=== PATIENT | male | born 1960 | race Caucasian/White ===

== ENCOUNTER 2016-07-01 04:46 | Inpatient (IN) | payer MEDICAID, OTHER ==
[~2016-07-01] VITALS: Ht 172.7 cm; Wt 74.4 kg
[~2016-07-01 04:46] MED LIST: AMLO1TAB48 PO; ASPI-1063 PO; B12; COR25 PO; CYAN250010 PO; GLIP-201 PO; GLIP10TA74 PO; GLIP5TAB13 PO; GLYB5TAB7 PO; INSU100V9 SUBCUT; LIP80 PO; LISI10TA5 PO; LOSA50TA3 PO; METF-305 PO; METF-510 PO; MULT PO; PYRI100T2 PO; REGULAR INSULIN; VERA180T7 PO; [UNRECOGNIZED DRUG - REMARK]
[2016-07-01 04:50] VITALS: BP 184/103; PULSE 88; RESP 15; TEMP 97; O2SAT 98
[2016-07-01] MEDS ORDERED: D5NS 1,000 ML IV ONE (05:15)
[2016-07-01] MEDS ORDERED: NEPH PO (05:15)
[2016-07-01] MEDS ORDERED: DEXTROSE 50% JECT 50 ML DISP.SYRIN IVP ONE (06:00)
[2016-07-01 06:07] LABS: BASOPHILS % (AUTO) 0.2 % (0.0-2.0); EOSINOPHILS % (AUTO) 0.3 % (0.0-4.0); HEMATOCRIT 36.5 % (36-54); HEMOGLOBIN 12.3 g/dL (14.0-18.0); LYMPHOCYTES # (AUTO) 0.7 K/uL (1.0-5.5); LYMPHOCYTES % (AUTO) 7.6 % (20.5-51.5); MEAN CORPUSCULAR HEMOGLOBIN 32 pg (27-31); MEAN CORPUSCULAR HGB CONC 34 % (32-36); MEAN CORPUSCULAR VOLUME 96 fL (79.0-98.0); MONOCYTES # (AUTO) 0.5 K/uL (0.0-1.0); MONOCYTES % (AUTO) 5.4 % (1.7-9.3); NEUTROPHILS % (AUTO) 86.5 % (40.0-70.0); PLATELET COUNT (AUTO) 156 K/uL (130-430); RED BLOOD CELL COUNT(AUTO) 3.81 MIL/uL (4.2-6.2); RED CELL DISTRIBUTION WIDTH 13.6 % (9.0-15.0); WHITE BLOOD COUNT (AUTO) 9.2 K/uL (4.8-10.8)
[2016-07-01 06:17] LABS: CALCIUM 9.5 mg/dL (8.4-11.0); CREATININE 1.57 mg/dL (0.55-1.30); POTASSIUM 3.5 mmol/L (3.5-5.1)
[2016-07-01 06:22] LABS: TOTAL BILIRUBIN 0.4 mg/dL (0.0-1.0); TOTAL PROTEIN, SERUM 7.1 g/dL (6.4-8.3)
[2016-07-01] MEDS ORDERED: D10W 250 ML IV SCH (06:30)
[2016-07-01] MEDS ORDERED: COMMUNICATION ORDER XX ONE (06:45)
[2016-07-01 07:01] VITALS: BP 177/113; PULSE 90; RESP 17; TEMP 96.1; O2SAT 99
[2016-07-01 07:09] VITALS: BP 177/113; PULSE 79; RESP 17; TEMP 96.1; O2SAT 100
[2016-07-01] MEDS ORDERED: FLU VACC QS 2016-17(36MOS+)/PF 0.5 ML/SYR SYRINGE I.M. PRN (07:30)
[2016-07-01] MEDS: D10W 1,000 ML IV SCH ×2 (08:32→21:26)
[2016-07-01 10:28] VITALS: BP 159/98; PULSE 88; RESP 18; O2SAT 100
[2016-07-01] MEDS ORDERED: DEXTROSE 50% JECT 50 ML DISP.SYRIN IVP PRN (14:15)
[2016-07-01 14:34] LABS: BILIRUBIN,URINE NEGATIVE (NEGATIVE); CLARITY/URINE CLEAR (CLEAR); COLOR,URINE YELLOW (YELLOW); GLUCOSE,URINE 2+ (NEGATIVE); KETONES,URINE NEGATIVE (NEGATIVE); LEUKOCYTE ESTERASE ,URINE NEGATIVE (NEGATIVE); NITRITE, URINE NEGATIVE (NEGATIVE); PROTEIN URINE 3+ (NEGATIVE); UROBILINOGEN,URINE 0.2 (0.2-1.0)
[2016-07-01 14:35] LABS: BLOOD, URINE TRACE (NEGATIVE)
[2016-07-01] MEDS ORDERED: VERAPAMIL HCL 120 MG TABLET.SA PO ONE (14:45)
[2016-07-01 14:55] LABS: BACTERIA,URINE FEW /HPF (None Seen); MUCUS,URINE None Seen /LPF (None Seen); WBC,URINE 0-3 /HPF (0-3)
[2016-07-01 20:00] VITALS: BP 149/92; PULSE 83; RESP 18; TEMP 99.8; O2SAT 99
[2016-07-01] MEDS ORDERED: VERAPAMIL HCL 180 MG TABLET.SA PO SCH ×2 (21:00)
[2016-07-01] MEDS ORDERED: glipiZIDE XL 5 MG TAB ( GLUCOTROL XL) PO SCH (21:00)
[2016-07-01] MEDS: VERAPAMIL HCL 120 MG TABLET.SA PO SCH (21:29)
[2016-07-02] VITALS (8 sets, daily range): BP systolic 118–157; BP diastolic 72–97; PULSE 71–88; RESP 16–20; TEMP 97.1–98.2; O2SAT 97–99
[2016-07-02 06:45] LABS: BASOPHILS % (AUTO) 0.2 % (0.0-2.0); EOSINOPHILS # (AUTO) 0.1 K/uL (0.0-0.4); HEMATOCRIT 34.6 % (36-54); HEMOGLOBIN 11.6 g/dL (14.0-18.0); LYMPHOCYTES # (AUTO) 2.1 K/uL (1.0-5.5); MEAN CORPUSCULAR HEMOGLOBIN 32 pg (27-31); MEAN CORPUSCULAR HGB CONC 34 % (32-36); MEAN CORPUSCULAR VOLUME 96 fL (79.0-98.0); MONOCYTES # (AUTO) 0.5 K/uL (0.0-1.0); MONOCYTES % (AUTO) 8.3 % (1.7-9.3); NEUTROPHILS # (AUTO) 3.8 K/uL (1.8-7.7); NEUTROPHILS % (AUTO) 57.5 % (40.0-70.0); PLATELET COUNT (AUTO) 159 K/uL (130-430); RED BLOOD CELL COUNT(AUTO) 3.62 MIL/uL (4.2-6.2); RED CELL DISTRIBUTION WIDTH 13.6 % (9.0-15.0); WHITE BLOOD COUNT (AUTO) 6.5 K/uL (4.8-10.8)
[2016-07-02 08:13] LABS: ANION GAP 6 (5-15); CHLORIDE 106 mmol/L (98-107); POTASSIUM 4.4 mmol/L (3.5-5.1); SODIUM SERUM 141 mmol/L (136-145)
[2016-07-02 08:14] LABS: ALANINE AMINOTRANSFERASE 23 U/L (12-78); ALBUMIN 2.4 g/dL (3.4-4.8); ASPARTATE AMINOTRANSFERASE 17 U/L (10-37); CALCIUM 8.9 mg/dL (8.4-11.0); CREATININE 1.69 mg/dL (0.55-1.30); GFR AFRICAN AMERICAN 54 mL/min (>90); GLUCOSE 116 mg/dL (70-99); TOTAL BILIRUBIN 0.4 mg/dL (0.0-1.0); TOTAL PROTEIN, SERUM 6.2 g/dL (6.4-8.3); UREA NITROGEN, BLOOD 23 mg/dL (8-21)
[2016-07-02 08:15] LABS: CHOLESTEROL 165 mg/dL (<200); HDL CHOLESTEROL 47 mg/dL (>45); LDL CHOLESTEROL 91 mg/dL (<100); THYROID STIMULATING HORMONE 0.96 uIu/mL (0.34-4.82); TRIGLYCERIDES 86 mg/dL (30-150)
[2016-07-02] MEDS ORDERED: CYANOCOBALAMIN 1000 mCg TABLET PO SCH (09:00)
[2016-07-02] MEDS: ASPIRIN 81 MG TABLET(ECOTRIN) PO SCH (09:45)
[2016-07-02] MEDS: MULTIVITAMINS TAB 1 TABLET PO SCH (09:46)
[2016-07-02] MEDS: NEPHROVITE, (FOLIC ACID/VITAMIN B COMP W-C 1 TAB) PO SCH (09:46)
[2016-07-02] MEDS: ATORVASTATIN 20 MG TABLET PO SCH (09:51)
[2016-07-02] MEDS: VERAPAMIL HCL 120 MG TABLET.SA PO SCH ×2 (09:57→21:01)
[2016-07-02] MEDS: INSULIN REGULAR, HUMAN 100 UNITS/ML, 10 ML VIAL (novoLIN R) SUBCUT PRN ×3 (09:59→21:24)
[2016-07-02] MEDS ORDERED: DEXTROSE 50% JECT 50 ML DISP.SYRIN IVP PRN (18:15)
[2016-07-02] MEDS ORDERED: ACETAMINOPHEN 325 MG TABLET PO PRN (18:45)
[2016-07-03] VITALS (7 sets, daily range): BP systolic 128–157; BP diastolic 84–93; PULSE 67–76; RESP 16–20; TEMP 97.2–97.8; O2SAT 96–99; Ht 172.7 cm; Wt 74.4 kg
[2016-07-03 08:13] LABS: CALCIUM 8.9 mg/dL (8.4-11.0); CREATININE 1.71 mg/dL (0.55-1.30); POTASSIUM 5.1 mmol/L (3.5-5.1)
[2016-07-03] MEDS: MULTIVITAMINS TAB 1 TABLET PO SCH (08:31)
[2016-07-03] MEDS: ASPIRIN 81 MG TABLET(ECOTRIN) PO SCH (08:32)
[2016-07-03] MEDS: ATORVASTATIN 20 MG TABLET PO SCH (08:32)
[2016-07-03] MEDS: NEPHROVITE, (FOLIC ACID/VITAMIN B COMP W-C 1 TAB) PO SCH (08:32)
[2016-07-03] MEDS: VERAPAMIL HCL 120 MG TABLET.SA PO SCH (08:32)
[2016-07-03] MEDS: INSULIN REGULAR, HUMAN 100 UNITS/ML, 10 ML VIAL (novoLIN R) SUBCUT PRN (11:07)
[2016-07-03] MEDS ORDERED: CARVEDILOL 6.25 MG TABLET (COREG) PO ONE (11:30)
[2016-07-03] MEDS ORDERED: CARVEDILOL 6.25 MG TABLET (COREG) PO SCH (21:00)
[2016-07-04] MEDS ORDERED: LOSARTAN POTASSIUM 50 MG TABLET (COZAAR) PO SCH (09:00)
== END 2016-07-03 14:25 | disposition home or self-care (01) | DRG 637 ==
LOC: SED 04:46 → STU 06:36 → EEVIPCON 06:36 → STU 06:50
PROVIDERS: ADMIT Internal Medicine; ATTEND Internal Medicine
DX: E11.649 Type 2 diabetes mellitus with hypoglycemia without coma (principal); G93.41 Metabolic encephalopathy; T38.3X5A Adverse effect of insulin and oral hypoglycemic [antidiabetic] drugs, initial encounter; Y92.89 Other specified places as the place of occurrence of the external cause; R07.89 Other chest pain; E11.21 Type 2 diabetes mellitus with diabetic nephropathy; E11.22 Type 2 diabetes mellitus with diabetic chronic kidney disease; D63.8 Anemia in other chronic diseases classified elsewhere; E78.5 Hyperlipidemia, unspecified; I25.10 Atherosclerotic heart disease of native coronary artery without angina pectoris; I25.5 Ischemic cardiomyopathy; N18.9 Chronic kidney disease, unspecified; I12.9 Hypertensive chronic kidney disease with stage 1 through stage 4 chronic kidney disease, or unspecified chronic kidney disease; I51.7 Cardiomegaly; Z59.9 Problem related to housing and economic circumstances, unspecified; Z91.19 Patient's noncompliance with other medical treatment and regimen; Z88.8 Allergy status to other drugs, medicaments and biological substances; Z83.3 Family history of diabetes mellitus; Z82.49 Family history of ischemic heart disease and other diseases of the circulatory system; I25.2 Old myocardial infarction; Z79.899 Other long term (current) drug therapy
CPT/HCPCS: 36415; 71020-TC; 80048; 80053; 80061; 81000-TC; 82962; 83036; 83880; 84443-TC; 84484; 85025; 93005; 93306; 96374; 99285; J1815; J7042; Q2037

== ENCOUNTER 2016-07-24 10:14 | Inpatient (IN) | payer SELFPAY ==
[~2016-07-24] VITALS: Ht 172.7 cm; Wt 72.6 kg
[~2016-07-24 10:14] MED LIST changes: +NEPH PO
[2016-07-24 10:15] VITALS: BP 154/91; PULSE 85; RESP 20; TEMP 99.6; O2SAT 100
--- NOTE | 2016-07-24 10:15 | NUR ---
Pt placed to ER bed 02 and triaged at bedside. Pt c/o SOB with productive cough x 4 days. Pt also c/o Right sided C/P from coughing. Family member at bedside. Addendum: 07/24/16 at 1228 by SDEDAJ Pt also c/o Left C/P.
--- NOTE | 2016-07-24 10:20 | NUR ---
Dr. Alves at bedside to assess pt.
[2016-07-24] MEDS ORDERED: IPRATROPIUM/ALBUTEROL SULFATE 3 ML AMPUL.NEB INH ONE (10:30)
--- NOTE | 2016-07-24 10:35 | NUR ---
# 20 gauge angiocath placed to RAC. Use of asceptic technique. Opsite placed over site. Blood return noted. Blood for lab drawn from site. Flushed with 10 cc of normal saline. No evidence of infiltration noted. Patient tolerated well.
[2016-07-24 10:48] LABS: BASOPHILS # (AUTO) 0.1 K/uL (0.0-0.2); BASOPHILS % (AUTO) 1.6 % (0.0-2.0); EOSINOPHILS % (AUTO) 0.5 % (0.0-4.0); HEMATOCRIT 35.7 % (36-54); LYMPHOCYTES # (AUTO) 1.1 K/uL (1.0-5.5); LYMPHOCYTES % (AUTO) 11.8 % (20.5-51.5); MEAN CORPUSCULAR HEMOGLOBIN 32 pg (27-31); MEAN CORPUSCULAR HGB CONC 34 % (32-36); MEAN CORPUSCULAR VOLUME 94 fL (79.0-98.0); MONOCYTES # (AUTO) 0.8 K/uL (0.0-1.0); MONOCYTES % (AUTO) 8.9 % (1.7-9.3); NEUTROPHILS # (AUTO) 7.3 K/uL (1.8-7.7); NEUTROPHILS % (AUTO) 77.2 % (40.0-70.0); PLATELET COUNT (AUTO) 207 K/uL (130-430); RED CELL DISTRIBUTION WIDTH 13.9 % (9.0-15.0); WHITE BLOOD COUNT (AUTO) 9.3 K/uL (4.8-10.8)
[2016-07-24] MEDS ORDERED: ASPIRIN 325 MG TABLET (ECOTRIN) PO ONE (11:00)
--- NOTE | 2016-07-24 11:00 | NUR ---
Neb tx IP per RT.
[2016-07-24] MEDS ORDERED: ASPIRIN 325 MG TABLET ONE (11:05)
[2016-07-24 11:16] LABS: CALCIUM 8.1 mg/dL (8.4-11.0); CREATININE 1.94 mg/dL (0.55-1.30); POTASSIUM 4.1 mmol/L (3.5-5.1)
[2016-07-24 11:24] LABS: ALBUMIN 2.3 g/dL (3.4-4.8); TOTAL BILIRUBIN 0.7 mg/dL (0.0-1.0)
[2016-07-24] MEDS ORDERED: FUROSEMIDE 40 MG/4 ML VIAL IVP ONE (11:45)
[2016-07-24] MEDS ORDERED: NS 500 ML IV ONE (12:00)
[2016-07-24] MEDS ORDERED: HEPARIN 25,000 UNITS/D5W 250ML 250 ML IV ONE ×2 (12:00→12:15)
--- NOTE | 2016-07-24 12:00 | NUR ---
Pt resting quietly with eyes closed, even and non-labored respirations, VSS. at bedside. No needs verbalized at this time.
[2016-07-24] MEDS ORDERED: VITD2000 PO (12:02)
[2016-07-24] MEDS ORDERED: FISH1CAP16 PO (12:02)
[2016-07-24] MEDS ORDERED: LOSA1TAB36 PO (12:02)
--- NOTE | 2016-07-24 12:03 | NUR ---
Medication reconciliation completed with information provided by patient . Any prior medication reconciliation on file was reviewed and corrected.
--- NOTE | 2016-07-24 12:22 | NUR ---
Nuc med called stated pt will be scanned tonight will inform [facility] nurse upon admission
[2016-07-24 12:27] LABS: PROTHROMBIN TIME 10.8 SECS (9.5-12.5)
[2016-07-24] MEDS ORDERED: COMMUNICATION ORDER XX SCH (12:30)
--- NOTE | 2016-07-24 12:30 | NUR ---
Pt unable to provide urine specimen at this time.
[2016-07-24] MEDS ORDERED: HEPARIN SODIUM,PORCINE 5000 UNITS/ML VIAL ONE (12:59)
[2016-07-24] MEDS ORDERED: MORPHINE SULFATE 10 MG/ML VIAL IVP PRN (13:00)
[2016-07-24] MEDS ORDERED: HEPARIN SODIUM,PORCINE 5000 UNITS/ML VIAL IVP ONE (13:00)
--- NOTE | 2016-07-24 13:07 | NUR ---
Dr. Alves notified about pt.'s pain 12/25 and temp 101.6. Pt to be medicated.
[2016-07-24] MEDS ORDERED: INSULIN REGULAR, HUMAN 100 UNITS/ML, 10 ML VIAL (novoLIN R) SUBCUT PRN (13:15)
[2016-07-24] MEDS ORDERED: MORPHINE SULFATE 10 MG/ML VIAL IVP ONE (13:15)
[2016-07-24] MEDS ORDERED: ACETAMINOPHEN 500 MG TABLET PO ONE (13:15)
--- NOTE | 2016-07-24 13:20 | NUR ---
Patient will be admitted to care of Dr. Zhao. Admitted to Tele unit. Will go to room 135. Summary report printed. Bedside report given to receiving RN.
--- NOTE | 2016-07-24 13:20 | NUR ---
ADMIT NOTE Received pt from ER to the floor with a diagnosis of CHF . Admission process initiated. patient oriented to pain management, safety and call light-teach back done.
[2016-07-24 13:25] VITALS: BP 129/65; PULSE 87; RESP 20; TEMP 102.2; O2SAT 95
[2016-07-24 13:27] VITALS: BP 129/65; PULSE 86; RESP 20; TEMP 102.2; O2SAT 96
[2016-07-24] MEDS ORDERED: HEPARIN 25,000 UNITS in 250 ML PREMIX IV PRN (14:00)
[2016-07-24] MEDS ORDERED: HEPARIN SODIUM,PORCINE 2000 UNITS/0.4 ML BOLUS IVP PRN (14:00)
[2016-07-24] MEDS ORDERED: HEPARIN SODIUM,PORCINE 3000 UNITS/0.6 ML BOLUS IVP PRN (14:00)
[2016-07-24] MEDS ORDERED: GLUCOSE 15 GM GEL (in 37.5 GM TUBE) PO PRN ×2 (14:30)
[2016-07-24] MEDS ORDERED: DEXTROSE 50%-WATER 50 ML DISP.SYRIN IVP PRN ×2 (14:30)
--- NOTE | 2016-07-24 15:00 | NUR ---
Patient awake,alert and oriented x3 , at bedside . Patient denies shortness of breath ,on Heparin drip at 1200 units/hour.Patient informed that he is going for VQ scan today.Was seen by Dr. Zhao. Patient instructed about the need to get a sputum specimen for sputum culture.
[2016-07-24] MEDS ORDERED: DEXTROSE 50% JECT 50 ML DISP.SYRIN IVP PRN (15:30)
[2016-07-24] MEDS ORDERED: ACETAMINOPHEN 325 MG TABLET PO PRN (15:30)
--- NOTE | 2016-07-24 15:42 | NUR ---
Cardio Consult: for Dr. Woodson (Dr. Carrera is application support intern), regarding CP, ordered by Dr. Lopez, spoke with Zaida.
--- NOTE | 2016-07-24 16:20 | NUR ---
INFLUENZA A AND B SENT TO LAB.
[2016-07-24] MEDS: NACL 0.9% 1,000 ML IV SCH (16:32)
--- NOTE | 2016-07-24 16:47 | NUR ---
PT WENT FOR FANTASMA SANTIAGO AT THIS TIME.
--- NOTE | 2016-07-24 17:30 | NUR ---
Patient went to Nuclear med for VQ scan with RN.Tolerated procedure well.
--- NOTE | 2016-07-24 17:55 | NUR ---
RETURNED FROM VQ SCAN.
[2016-07-24] MEDS: PIPERACILLIN/TAZO 2.25G/DEX-IS 50 ML IV SCH ×2 (18:06→23:37)
[2016-07-24] MEDS: INSULIN REGULAR, HUMAN 100 UNITS/ML, 10 ML VIAL (novoLIN R) SUBCUT PRN ×2 (18:08→22:06)
[2016-07-24 18:21] VITALS: TEMP 97.9
--- NOTE | 2016-07-24 18:48 | NUR ---
notes in bed, resting. family at bedside. denies any chest pain at this time. heparin running at 1200 unit/hr. ivf infusing well. afebrile at this time. still need ua, c&S and sputum culture. will endorse. call light in reach. no distress noted. will monitor.
[2016-07-24 19:45] VITALS: BP 138/82; PULSE 63; RESP 18; TEMP 98; O2SAT 95
--- NOTE | 2016-07-24 19:45 | NUR ---
INITIAL NOTES: PT AWAKE , ALERT AND ORIENTED ; DENIED ANY PAIN , SOB OR CHEST PAIN AT THIS TIME; VITALS ARE STABLE ; NO S/S OF ANY DISTRESS NOTED;HEPARIN CONTINUOUS DRIP IS INFUSING AT THE RATE OF 1200 U TO THE R AC 20 G , ; ASSESSMENT DONE ; IV FLUID INFUSING TO THE R HAND 22 G, NO S/S OF ANY INFILTRATION NOTED . PT HAS 2 SPECIMEN BOTTLE AT BEDSIDE , EXPLAINED PT HOW TO COLLECT URINE AND SPUTUM . WILL FOLLOW UP ;CALL [employer] IN REACH; INSTRUCTED PT TO CALL FOR ANY HELP. WILL CONTINUE TO MONITOR.FAMILY AT BEDSIDE .
--- NOTE | 2016-07-24 20:14 | NUR ---
VQ SCAN RESULT : PER RADIOLOGY DEPARTMENT (TALKED WITH TECH ), NO EVIDENCE OF PE , REQUESTED TECH TO FAX THE RESULT ONCE ITS READY .
--- NOTE | 2016-07-24 20:15 | NUR ---
PAGED: WILL PAGE DR LOOMIS TO NOTIFY RESULT , AND INFORM HIM THAT THE HEPARIN IS DISCONTINUED BY ER AND DOES THE PT NEEDS IT, AND HEPARIN IS STILL INFUSING , ALSO WILL INFORM HIS PTT LEVEL
--- NOTE | 2016-07-24 20:17 | NUR ---
PAGED PAGED DANILO HAUSER AT [phone] SPOKE WITH SEBLE.
[2016-07-24] MEDS ORDERED: COMMUNICATION ORDER XX ONE (20:30)
--- NOTE | 2016-07-24 20:30 | NUR ---
DCD HEPARIN: HEPARIN DISCONTINUED PER DR LOOMIS'S ORDER ., WAS NOTIFIED ABOUT THE PTT LEVEL , VQ SCAN RESULT , INFLUENZA A AND B RESULTS .
[2016-07-24] MEDS: LACTOBACILLUS RHAMNOSUS GG 1 CAP CAPSULE PO SCH (22:03)
[2016-07-24] MEDS: guaiFENesin ER 600 MG TAB PO SCH (22:03)
[2016-07-24] MEDS: glipiZIDE XL 5 MG TAB ( GLUCOTROL XL) PO SCH (22:03)
--- NOTE | 2016-07-24 22:05 | NUR ---
MEDICATION: DUE MEDS GIVEN , PT IS COMFORTABLE ; PT VOIDED EARLIER BUT SOME ONE EMPTIED IT , REQUESTED PT TO CALL NEXT TIME ; WILL CONTINUE TO MONITOR.
[2016-07-24 23:39] VITALS: BP 134/86; PULSE 66; RESP 16; TEMP 97; O2SAT 93
[2016-07-25] VITALS (7 sets, daily range): BP systolic 106–161; BP diastolic 57–88; PULSE 74–87; RESP 16–22; TEMP 97.6–99.4; O2SAT 95–98; Ht 172.7 cm; Wt 72.6 kg
--- NOTE | 2016-07-25 00:10 | NUR ---
RN NOTES: PT IS COMFORTABLE ; SLEEPING , NOT IN ANY DISTRESS; WILL CONTINUE TO MONITOR.DUE ANTIBIOTIC GIVEN EARLIER , NO S/S OF ANY REACTION NOTED , BEFORE GIVING ANTIBIOTIC ENCOURAGED PT TO COLLECT URINE AND SPUTUM SPECIMEN BUT PT COULDNT .
--- NOTE | 2016-07-25 02:00 | NUR ---
RN ROUNDS: PT IS SLEEPING, NOT IN ANY ACUTE DISTRESS; WILL CONTINUE TO MONITOR. Addendum: 07/25/16 at 0405 by Gissel Austin RN URINE AND SPUTUM COLLECTED AND SENT TO LAB
[2016-07-25 03:23] LABS: BILIRUBIN,URINE NEGATIVE (NEGATIVE); BLOOD, URINE 1+ (NEGATIVE); CLARITY/URINE CLEAR (CLEAR); COLOR,URINE YELLOW (YELLOW); GLUCOSE,URINE 3+ (NEGATIVE); KETONES,URINE NEGATIVE (NEGATIVE); LEUKOCYTE ESTERASE ,URINE NEGATIVE (NEGATIVE); NITRITE, URINE NEGATIVE (NEGATIVE); PROTEIN URINE 3+ (NEGATIVE); UROBILINOGEN,URINE 0.2 (0.2-1.0)
[2016-07-25] MEDS: NACL 0.9% 1,000 ML IV SCH (03:59)
[2016-07-25 04:02] LABS: BACTERIA,URINE FEW /HPF (None Seen); MUCUS,URINE None Seen /LPF (None Seen); RBC,URINE 0-3 /HPF (0-3); WBC,URINE 0-3 /HPF (0-3)
--- NOTE | 2016-07-25 04:05 | NUR ---
RN ROUNDS: PT IS SLEEPING , NOT IN ANY DISTRESS; WILL CONTINUE TO MONITOR.
[2016-07-25] MEDS: PIPERACILLIN/TAZO 2.25G/DEX-IS 50 ML IV SCH ×4 (06:29→23:42)
[2016-07-25] MEDS: INSULIN REGULAR, HUMAN 100 UNITS/ML, 10 ML VIAL (novoLIN R) SUBCUT PRN ×3 (06:31→21:11)
--- NOTE | 2016-07-25 06:53 | NUR ---
CLOSING NOTES: BS 213 , 2 UNITS OF REGULAR INSULIN GIVEN PER ORDER ; DUE ZOSYN STARTED ;PT IS COMFORTABLE ; NOT IN ANY ACUTE DISTRESS; VITALS ARE STABLE ; WILL CONTINUE TO MONITOR AND WILL ENDORSE TO NEXT SHIFT NURSE .
[2016-07-25 07:26] LABS: BASOPHILS % (AUTO) 0.2 % (0.0-2.0); EOSINOPHILS # (AUTO) 0.1 K/uL (0.0-0.4); EOSINOPHILS % (AUTO) 0.7 % (0.0-4.0); HEMATOCRIT 29.9 % (36-54); HEMOGLOBIN 9.9 g/dL (14.0-18.0); LYMPHOCYTES # (AUTO) 1.3 K/uL (1.0-5.5); LYMPHOCYTES % (AUTO) 14.7 % (20.5-51.5); MEAN CORPUSCULAR HEMOGLOBIN 32 pg (27-31); MEAN CORPUSCULAR HGB CONC 33 % (32-36); MEAN CORPUSCULAR VOLUME 95 fL (79.0-98.0); MONOCYTES # (AUTO) 0.8 K/uL (0.0-1.0); MONOCYTES % (AUTO) 8.9 % (1.7-9.3); NEUTROPHILS # (AUTO) 6.4 K/uL (1.8-7.7); NEUTROPHILS % (AUTO) 75.5 % (40.0-70.0); PLATELET COUNT (AUTO) 155 K/uL (130-430); RED BLOOD CELL COUNT(AUTO) 3.15 MIL/uL (4.2-6.2); RED CELL DISTRIBUTION WIDTH 13.2 % (9.0-15.0); WHITE BLOOD COUNT (AUTO) 8.6 K/uL (4.8-10.8)
[2016-07-25 07:51] LABS: ANION GAP 6 (5-15); CALCIUM 7.8 mg/dL (8.4-11.0); CHLORIDE 100 mmol/L (98-107); CREATININE 1.69 mg/dL (0.55-1.30); GLUCOSE 203 mg/dL (70-99); SODIUM SERUM 133 mmol/L (136-145); UREA NITROGEN, BLOOD 16 mg/dL (8-21)
[2016-07-25 08:00] LABS: ALANINE AMINOTRANSFERASE 18 U/L (12-78); ALBUMIN 1.9 g/dL (3.4-4.8); ASPARTATE AMINOTRANSFERASE 20 U/L (10-37); TOTAL BILIRUBIN 0.7 mg/dL (0.0-1.0); TOTAL PROTEIN, SERUM 6.1 g/dL (6.4-8.3)
--- NOTE | 2016-07-25 08:00 | NUR ---
PT IN BED AWAKE, ALERT AND ORIENTED. ON ROOM AIR. DENIES ANY SHORTNESS OF BREATH, PT STILL HAS COUGH. AMBULATE TO THE BATHROOM WITH MIN ASSIST. IVF INFUSING WELL. SAFETY PRECAUTION OBSERVED. CALL LIGHT IN REACH. ENC. TO CALL FOR HELP NEEDED. PT VERBALIZE UNDERSTANDING.
[2016-07-25 08:02] LABS: GFR AFRICAN AMERICAN 54 mL/min (>90)
[2016-07-25 08:09] LABS: CHOLESTEROL 103 mg/dL (<200); HDL CHOLESTEROL 29 mg/dL (>45); LDL CHOLESTEROL 51 mg/dL (<100); TRIGLYCERIDES 109 mg/dL (30-150)
[2016-07-25] MEDS: CHOLECALCIFEROL (VITAMIN D3) 2,000 UNIT TABLET PO SCH (09:13)
[2016-07-25] MEDS: guaiFENesin ER 600 MG TAB PO SCH ×2 (09:14→21:04)
[2016-07-25] MEDS: NEPHROVITE, (FOLIC ACID/VITAMIN B COMP W-C 1 TAB) PO SCH (09:14)
[2016-07-25] MEDS: ATORVASTATIN 20 MG TABLET PO SCH (09:15)
[2016-07-25] MEDS: LACTOBACILLUS RHAMNOSUS GG 1 CAP CAPSULE PO SCH ×2 (09:15→21:04)
[2016-07-25] MEDS: glipiZIDE XL 5 MG TAB ( GLUCOTROL XL) PO SCH ×2 (09:18→21:04)
[2016-07-25] MEDS: VERAPAMIL HCL 180 MG TABLET.SA PO SCH (09:18)
[2016-07-25] MEDS: ASPIRIN 81 MG TABLET(ECOTRIN) PO SCH (09:19)
[2016-07-25] MEDS: MULTIVITAMINS TAB 1 TABLET PO SCH (09:19)
--- NOTE | 2016-07-25 10:00 | NUR ---
WALKING IN THE HALLWAY WITH HIS .
--- NOTE | 2016-07-25 12:00 | NUR ---
EATING LUNCH. FAMILY AT BEDSIDE.
--- NOTE | 2016-07-25 14:30 | NUR ---
Dr. Zhao is here to see the patient,made aware that blood culture 1 out of 2 is positive for Gram positive. Ordered Vancomycin to be started.
[2016-07-25] MEDS ORDERED: IPRATROPIUM/ALBUTEROL SULFATE 3 ML AMPUL.NEB INH ONE (15:15)
[2016-07-25] MEDS ORDERED: AZITHROMYCIN 250 MG TABLET PO ONE (15:15)
[2016-07-25] MEDS ORDERED: VANCOMYCIN HCL 1 GM/NS PREMIX 250 ML IV ONE (16:00)
--- NOTE | 2016-07-25 16:00 | NUR ---
RESTING IN BED, NO ACUTE DISTRESS NOTED. DENIES ANY PAIN OR DISCOMFORT.
--- NOTE | 2016-07-25 18:21 | NUR ---
IN BED AWAKE, DENIES ANY PAIN OR DISCOMFORT. NO DISTRESS NOTED. IV ABX INFUSING AT THIS TIME. ALL NEEDS MEET. WILL ENDORSE
--- NOTE | 2016-07-25 19:30 | NUR ---
notes received the pt from the day nurse,pt a/a/ox4 monitor in place and shows a fib at 82.saline lock intact to rt hand.pt with no c/o sob call light within reach safety measures are in progress.continue to monitor.
[2016-07-25] MEDS: IPRATROPIUM/ALBUTEROL SULFATE 3 ML AMPUL.NEB INH SCH (21:46)
--- NOTE | 2016-07-25 23:35 | NUR ---
NOTES PT SLEEPING,NO RESPIRATORY DIFFICULTY NOTED. CONTINUE TO MONITOR
--- NOTE | 2016-07-26 01:20 | NUR ---
NOTES PT REMAINS ASLEEP ,NO DISTRESS NOTED.CONTINUE TO MONITOR.
[2016-07-26 03:50] VITALS: BP 152/87; PULSE 88; RESP 18; TEMP 98.2; O2SAT 97
--- NOTE | 2016-07-26 03:51 | NUR ---
NOTES PT REMAINS ASLEEP,NO RESPIRATORY DIFFICULTY NOTED.CONTINUE TO MONITOR.
--- NOTE | 2016-07-26 04:22 | NUR ---
NOTES PT SLEEPING,NO DISTRESS NOTED CONTINUE TO MONITOR.
--- NOTE | 2016-07-26 05:34 | NUR ---
NOTES PT REMAINS ASLEEP,CALL LIGHT WITHIN REACH.CONTINUE TO MONITOR.
[2016-07-26] MEDS: PIPERACILLIN/TAZO 2.25G/DEX-IS 50 ML IV SCH ×3 (05:44→17:41)
--- NOTE | 2016-07-26 06:32 | NUR ---
CLOSING NOTES AWAKEN FOR ACCUCHECK THAT WAS
--- NOTE | 2016-07-26 06:33 | NUR ---
CLOSING NOTES AWAKEN FOR ACCUCHECK THAT WAS 169,NO INSULIN NEEDED PER S/S.RETURNS TO SLEEP WITH NO COMPLAINTS.
[2016-07-26 06:56] LABS: BASOPHILS % (AUTO) 0.1 % (0.0-2.0); EOSINOPHILS % (AUTO) 0.3 % (0.0-4.0); HEMATOCRIT 29.6 % (36-54); HEMOGLOBIN 9.8 g/dL (14.0-18.0); LYMPHOCYTES # (AUTO) 1.2 K/uL (1.0-5.5); LYMPHOCYTES % (AUTO) 14.9 % (20.5-51.5); MEAN CORPUSCULAR HEMOGLOBIN 31 pg (27-31); MEAN CORPUSCULAR HGB CONC 33 % (32-36); MEAN CORPUSCULAR VOLUME 94 fL (79.0-98.0); MONOCYTES # (AUTO) 0.9 K/uL (0.0-1.0); MONOCYTES % (AUTO) 11.8 % (1.7-9.3); NEUTROPHILS # (AUTO) 5.7 K/uL (1.8-7.7); NEUTROPHILS % (AUTO) 72.9 % (40.0-70.0); PLATELET COUNT (AUTO) 182 K/uL (130-430); RED BLOOD CELL COUNT(AUTO) 3.16 MIL/uL (4.2-6.2); RED CELL DISTRIBUTION WIDTH 13.2 % (9.0-15.0); WHITE BLOOD COUNT (AUTO) 7.8 K/uL (4.8-10.8)
[2016-07-26] MEDS: IPRATROPIUM/ALBUTEROL SULFATE 3 ML AMPUL.NEB INH SCH ×3 (07:23→19:51)
[2016-07-26 07:27] LABS: CALCIUM 8.4 mg/dL (8.4-11.0); CREATININE 1.61 mg/dL (0.55-1.30); POTASSIUM 4.1 mmol/L (3.5-5.1)
--- NOTE | 2016-07-26 07:34 | NUR ---
PATIENT A/OX4, SR ON MONITOR. V/S STABLE. IV ON RIGHT FA, #20, SL. AMBULATORY. INSTRUCTED PATIENT TO USE CALL LIGHT, WHICH IS IN PLACE, FOR NEEDS, BED AT LOWEST POSITION, WILL CONTINUE TO MONITOR.
[2016-07-26 08:00] VITALS: BP 172/102; PULSE 91; RESP 18; TEMP 98; O2SAT 100
[2016-07-26] MEDS: MULTIVITAMINS TAB 1 TABLET PO SCH (08:00)
[2016-07-26] MEDS: glipiZIDE XL 5 MG TAB ( GLUCOTROL XL) PO SCH ×2 (08:00→21:39)
[2016-07-26] MEDS: VERAPAMIL HCL 180 MG TABLET.SA PO SCH (08:00)
[2016-07-26] MEDS: AZITHROMYCIN 250 MG TABLET PO SCH (08:00)
[2016-07-26] MEDS: CHOLECALCIFEROL (VITAMIN D3) 2,000 UNIT TABLET PO SCH (08:01)
[2016-07-26] MEDS: ASPIRIN 81 MG TABLET(ECOTRIN) PO SCH (08:01)
[2016-07-26] MEDS: NEPHROVITE, (FOLIC ACID/VITAMIN B COMP W-C 1 TAB) PO SCH (08:01)
[2016-07-26] MEDS: ATORVASTATIN 20 MG TABLET PO SCH (08:01)
[2016-07-26] MEDS: guaiFENesin ER 600 MG TAB PO SCH ×2 (08:01→21:39)
[2016-07-26] MEDS: LACTOBACILLUS RHAMNOSUS GG 1 CAP CAPSULE PO SCH ×2 (08:01→21:40)
--- NOTE | 2016-07-26 10:00 | NUR ---
PATIENT IS RESTING IN BED, NO SIGNS OF DISTRESS NOTED. SR ON MONITOR. WILL CONTINUE TO MONITOR.
[2016-07-26 12:00] VITALS: BP 150/91; PULSE 94; RESP 21; TEMP 98.3; O2SAT 97
--- NOTE | 2016-07-26 12:10 | NUR ---
PATIENT BLOOD SUGAR IS 233. 2 UNITS OF RI WILL BE GIVEN.
[2016-07-26] MEDS: INSULIN REGULAR, HUMAN 100 UNITS/ML, 10 ML VIAL (novoLIN R) SUBCUT PRN ×3 (12:29→21:44)
--- NOTE | 2016-07-26 14:28 | NUR ---
PATIENT IS RESTING IN BED WITH FAMILY AT BEDSIDE.
[2016-07-26 16:00] VITALS: BP 149/77; PULSE 71; RESP 20; TEMP 97; O2SAT 98
[2016-07-26 20:12] VITALS: BP 137/71; PULSE 74; RESP 18; TEMP 98.1; O2SAT 96
--- NOTE | 2016-07-26 20:41 | NUR ---
Patient awake alert verbally indicative , assist for position change using urinal as needed call pierre with patient / .
[2016-07-26] MEDS ORDERED: ZOLPIDEM TARTRATE 5 MG TABLET PO PRN (21:45)
--- NOTE | 2016-07-26 22:45 | NUR ---
New ordered obtained from MD DR Zhao / .
--- NOTE | 2016-07-26 23:08 | NUR ---
BSG @ 288 MG DL 4 UNITS of Regular insulin sub q. administer per sliding scale / .
--- NOTE | 2016-07-26 23:08 | NUR ---
AMBIEN 5 MG PRN QHS for sleep aide , new order from / .
[2016-07-27] MEDS: PIPERACILLIN/TAZO 2.25G/DEX-IS 50 ML IV SCH ×4 (00:45→17:04)
[2016-07-27] MEDS: IPRATROPIUM/ALBUTEROL SULFATE 3 ML AMPUL.NEB INH SCH ×3 (01:00→14:01)
[2016-07-27 01:10] VITALS: BP 131/68; PULSE 73; RESP 20; TEMP 97.8; O2SAT 97
--- NOTE | 2016-07-27 01:23 | NUR ---
ZOSYN 2.25GM IVPB administer as ordered no allergic reaction noted skin dry warm / .
[2016-07-27 04:00] VITALS: BP 132/68; PULSE 74; RESP 16; TEMP 97.8; O2SAT 98
--- NOTE | 2016-07-27 05:57 | NUR ---
assist patient out of bed for CXR went to DEPARTMENT X RAY / .
[2016-07-27] MEDS: INSULIN REGULAR, HUMAN 100 UNITS/ML, 10 ML VIAL (novoLIN R) SUBCUT PRN ×2 (06:34→12:20)
[2016-07-27 08:00] VITALS: BP 181/101; PULSE 86; RESP 16; TEMP 98; O2SAT 98
[2016-07-27] MEDS: ATORVASTATIN 20 MG TABLET PO SCH (08:00)
[2016-07-27] MEDS: glipiZIDE XL 5 MG TAB ( GLUCOTROL XL) PO SCH (08:01)
[2016-07-27] MEDS: VERAPAMIL HCL 180 MG TABLET.SA PO SCH (08:01)
[2016-07-27] MEDS: NEPHROVITE, (FOLIC ACID/VITAMIN B COMP W-C 1 TAB) PO SCH (08:01)
[2016-07-27] MEDS: MULTIVITAMINS TAB 1 TABLET PO SCH (08:01)
[2016-07-27] MEDS: CHOLECALCIFEROL (VITAMIN D3) 2,000 UNIT TABLET PO SCH (08:01)
[2016-07-27] MEDS: AZITHROMYCIN 250 MG TABLET PO SCH (08:02)
[2016-07-27] MEDS: ASPIRIN 81 MG TABLET(ECOTRIN) PO SCH (08:02)
[2016-07-27] MEDS: LACTOBACILLUS RHAMNOSUS GG 1 CAP CAPSULE PO SCH (08:02)
[2016-07-27] MEDS: guaiFENesin ER 600 MG TAB PO SCH (08:03)
--- NOTE | 2016-07-27 10:00 | NUR ---
PATIENT IS SEEN WALKING WITH IV POLE WITHOUT DISCOMFORT.
--- NOTE | 2016-07-27 12:00 | NUR ---
PATIENT BLOOD SUGAR 259. 4 UNITS OF RI IS GIVEN SUBCUT.
--- NOTE | 2016-07-27 14:00 | NUR ---
PATIENT IS RESTING, NO SIGNS OF DISTRESS NOTED. SR ON MONITOR, FAMILY AT BEDSIDE.
[2016-07-27] MEDS ORDERED: cloNIDine HCL 0.1 MG TABLET PO ONE (15:15)
[2016-07-27] MEDS ORDERED: EPOETIN ALFA 4,000 UNITS/ML VIAL SUBCUT ONE (15:30)
--- NOTE | 2016-07-27 16:15 | NUR ---
PATIENT IS RESTING, NO SIGNS OF DISTRESS NOTED.
[2016-07-27 16:31] VITALS: BP 155/81; PULSE 78; RESP 17; TEMP 97.4; O2SAT 98
--- NOTE | 2016-07-27 18:00 | NUR ---
D/C Patient Patient given medication reconciliation form and D/C instructions. Exit Care provided. Patient verbalized understanding. MD discussed with patient the results and treatment provided. Ambulatory with steady gait for discharge to home. Patient in stable condition, ID band removed. IV catheter removed, intact and dressing applied, no active bleeding. Rx of DOXYCYCLINE AND ROBITUSSIN IS given. Patient educated on pain management. All belongings sent with patient.
--- NOTE | 2016-08-04 15:32 | NUR ---
Discharge Follow Up Phone Call: COMPOUND FILLER placed call to pt ([phone]); COMPOUND FILLER spoke to pt; pt states that he is doing well. Pt has a follow up appointment with his PCP, tomorrow, 08/05/16. Pt states that he was able to fill his prescriptions and has been checking his blood sugar regularly. Pt denied the need for further follow up calls.
--- NOTE | 2016-08-20 10:25 | NUR ---
Discharge Follow Up Phone Call: MANAGER GLOBAL COMMUNICATIONS placed call to pt ([phone]); MANAGER GLOBAL COMMUNICATIONS spoke to pt and pt's . Pt and pt's state that pt is continuing to work; pt's states that they have gone to the [employer] and were denied all benefits due to their income. Pt's states that pt should be eligible for insurance benefits February/March of this year. Pt's states that they do have a prescription discount card and will use it to fill prescriptions as needed. Pt's states that they did go to the [facility] for lab work but would need to pay $250. MANAGER GLOBAL COMMUNICATIONS has contacted Mat at [facility] to re-screen the patient and see if pt may be eligible for [employer] at this time. Pt's was agreeable to having Mat contact pt/pt's to re-screen. MANAGER GLOBAL COMMUNICATIONS encouraged pt/pt's to contact social media designer should any needs arise.
== END 2016-07-27 18:00 | disposition home or self-care (01) | DRG 202 ==
LOC: SED 10:14 → STU 12:26
PROVIDERS: ADMIT Internal Medicine; ATTEND Internal Medicine
DX: J20.9 Acute bronchitis, unspecified (principal); E43 Unspecified severe protein-calorie malnutrition; N17.9 Acute kidney failure, unspecified; E11.21 Type 2 diabetes mellitus with diabetic nephropathy; E11.22 Type 2 diabetes mellitus with diabetic chronic kidney disease; E78.5 Hyperlipidemia, unspecified; I25.10 Atherosclerotic heart disease of native coronary artery without angina pectoris; I25.2 Old myocardial infarction; I25.5 Ischemic cardiomyopathy; N18.9 Chronic kidney disease, unspecified; Z79.4 Long term (current) use of insulin; E78.00 Pure hypercholesterolemia, unspecified; Z88.8 Allergy status to other drugs, medicaments and biological substances; Z68.24 Body mass index [BMI] 24.0-24.9, adult; D63.8 Anemia in other chronic diseases classified elsewhere; I13.10 Hypertensive heart and chronic kidney disease without heart failure, with stage 1 through stage 4 chronic kidney disease, or unspecified chronic kidney disease
CPT/HCPCS: 36415; 71010; 71020-TC; 78579; 78580-TC; 80048; 80053; 80061; 81000-TC; 82962; 83605; 83880; 84484; 85025; 85379; 85610-TC; 85730-TC; 86710; 87040-TC; 87070-TC; 87081; 87086; 87205-TC; 93005; 94640; 94760; 96365; 96375; 99285; A9539; A9540; J0885; J1644; J1815; J1940; J1956; J2270; J2543; J3370; J7030; J7040; J7050; Q0144

== ENCOUNTER 2021-08-23 13:05 | Emergency (ER) | payer OTHER, MEDICAID ==
[~2021-08-23] VITALS: Ht 172.7 cm; Wt 81.6 kg
[2021-08-23 13:05] VITALS: BP_SYST 163
[~2021-08-23 13:05] MED LIST changes: -AMLO1TAB48 PO; +ASA81 PO; -ASPI-1063 PO; +ASPI-1457 PO; +ATOR40TA68 PO; -B12; -COR25 PO; -CYAN250010 PO; +FISH1CAP16 PO; +FURO-149 PO; -GLIP10TA74 PO; -GLIP5TAB13 PO; -GLYB5TAB7 PO; +HYDR100T25 PO; -INSU100V9 SUBCUT; +ISOS30TA9 PO; -LISI10TA5 PO; +LOSA1TAB43 PO; -LOSA50TA3 PO; -METF-305 PO; -METF-510 PO; +NEU300 PO; -PYRI100T2 PO; -REGULAR INSULIN; +SACU1TAB7 PO; +TOPXL100 PO; +VERA180T59 PO; -VERA180T7 PO; +VITD2000 PO; +VITD400 PO; -[UNRECOGNIZED DRUG - REMARK]
--- NOTE | 2021-08-23 13:10 | NUR ---
Patient to ER bed 6 to gown for evaluation. Side rails up. Report given to MAGALI LANDRY.
--- NOTE | 2021-08-23 13:14 | NUR ---
BIB by EMS, per EMS patient was at HD center when he became lethargic and altered. BS in field was 62, oral glucose given by EMS. BS upon arrival 84. MD at bedside.
--- NOTE | 2021-08-23 13:15 | NUR ---
20G PIV placed to left AC, labs drawn and brought to lab,.
--- NOTE | 2021-08-23 13:58 | NUR ---
assessed pt. patient resting comfortably in bed. no acute changes in condition. patient is AOx4 vs are stable. bed lowered, breaks engaged and rails up
[2021-08-23 14:13] LABS: BASOPHILS % (AUTO) 0.4 % (0.0-2.0); EOSINOPHILS # (AUTO) 0.1 K/uL (0.0-0.4); EOSINOPHILS % (AUTO) 1.8 % (0.0-4.0); HEMATOCRIT 35.5 % (36-54); HEMOGLOBIN 12.1 g/dL (14.0-18.0); LYMPHOCYTES % (AUTO) 18.4 % (20.5-51.5); MEAN CORPUSCULAR HEMOGLOBIN 35 pg (27-31); MEAN CORPUSCULAR HGB CONC 34 % (32-36); MEAN CORPUSCULAR VOLUME 102 fL (79.0-98.0); MONOCYTES # (AUTO) 0.5 K/uL (0.0-1.0); MONOCYTES % (AUTO) 8.4 % (1.7-9.3); PLATELET COUNT (AUTO) 119 K/uL (130-430); RED BLOOD CELL COUNT(AUTO) 3.49 MIL/uL (4.2-6.2); RED CELL DISTRIBUTION WIDTH 15.8 % (9.0-15.0); WHITE BLOOD COUNT (AUTO) 5.6 K/uL (4.8-10.8)
[2021-08-23 14:52] LABS: ANION GAP 9 (5-15); CALCIUM 8.7 mg/dL (8.4-11.0); CHLORIDE 102 mmol/L (98-107); GLUCOSE 80 mg/dL (70-99); POTASSIUM 3.6 mmol/L (3.5-5.1); SODIUM SERUM 142 mmol/L (136-145); UREA NITROGEN, BLOOD 34 mg/dL (8-21)
--- NOTE | 2021-08-23 14:54 | NUR ---
EKD done at bedside
[2021-08-23 14:56] LABS: GFR AFRICAN AMERICAN 28 mL/min (>90)
--- NOTE | 2021-08-23 15:00 | NUR ---
Patient remains stable, tech at bedside assisting with position for comfort.
[2021-08-23 15:01] LABS: ALANINE AMINOTRANSFERASE 44 U/L (12-78); ALBUMIN 3.6 g/dL (3.4-4.8); ASPARTATE AMINOTRANSFERASE 27 U/L (10-37); TOTAL BILIRUBIN 0.5 mg/dL (0.0-1.0)
--- NOTE | 2021-08-23 15:40 | NUR ---
Patient given written and verbal discharge instructions and verbalizes understanding. ER MD discussed with patient the results and treatment provided. Patient in stable condition. ID arm band removed. IV catheter removed intact and dressing applied, no active bleeding. Rx of given. Patient educated on pain management and to follow up with PMD. Pain Scale 0/10 Opportunity for questions provided and answered. Medication side effect fact sheet provided.
[2021-08-23 15:52] VITALS: BP_SYST 163
== END 2021-08-23 15:52 | disposition home or self-care (01) ==
LOC: SED 13:05
DX: R55 Syncope and collapse (principal); E16.2 Hypoglycemia, unspecified; E11.9 Type 2 diabetes mellitus without complications; I10 Essential (primary) hypertension; Z79.82 Long term (current) use of aspirin
CPT/HCPCS: 36415; 71045; 80053; 81002; 83605; 84484; 85025; 87040; 93005; 99284

== ENCOUNTER 2022-03-07 11:44 | Emergency (ER) | payer OTHER, MEDICAID ==
[~2022-03-07] VITALS: Ht 172.7 cm; Wt 81.6 kg
--- NOTE | 2022-03-07 11:45 | NUR ---
Placed in room 4 . Placed on compliance monitor, blood pressure machine and pulse oximeter. To gown for exam. Side rails up. Report given to GRIS SANTIAGO.
--- NOTE | 2022-03-07 11:50 | NUR ---
DR. SLOAN AT BEDSIDE TO ASSESS PT. RECEIVED PT FROM GRIS SAXENA. PT BIBA ALS, PT FOUND S/P DIALYSIS IN PARKING LOT ON THE GROUND. PT OBTUNDED, RESPONDS TO VOICE, RESPONSE IS CONFUSED. PERRL. RESP E/U. LUNG SOUND DIMINISHED BILATERALLY. ON R/A. ABDOMEN DISTENDED. BOWEL SOUNDS ACTIVE. ATKINS CATH IN PLACE DRAINING CLEAR YELLOW URINE. SKIN INTACT, PT HAS JERMAINE A/V SHUNT, BRUIT AND THRILL NOTED, COVERED WITH CDI DRESSING WITH PRESSURE CLAMP IN PLACE. SIDERAILS UP X2.
[2022-03-07 11:55] VITALS: BP_SYST 144
--- NOTE | 2022-03-07 12:10 | NUR ---
# 22 gauge angiocath placed to RIGHT WRIST. Use of asceptic technique. Opsite placed over site. Blood return noted. Blood for lab drawn from site. Flushed with 10 cc of normal saline. No evidence of infiltration noted. Patient tolerated well.
[2022-03-07 12:34] LABS: BASOPHILS % (AUTO) 0.5 % (0.0-2.0); EOSINOPHILS # (AUTO) 0.1 K/uL (0.0-0.4); EOSINOPHILS % (AUTO) 2.3 % (0.0-4.0); HEMOGLOBIN 9.8 g/dL (14.0-18.0); LYMPHOCYTES # (AUTO) 1.5 K/uL (1.0-5.5); LYMPHOCYTES % (AUTO) 29.4 % (20.5-51.5); MEAN CORPUSCULAR HEMOGLOBIN 38 pg (27-31); MEAN CORPUSCULAR HGB CONC 35 % (32-36); MEAN CORPUSCULAR VOLUME 107 fL (79.0-98.0); MONOCYTES # (AUTO) 0.6 K/uL (0.0-1.0); MONOCYTES % (AUTO) 10.6 % (1.7-9.3); NEUTROPHILS % (AUTO) 57.2 % (40.0-70.0); PLATELET COUNT (AUTO) 125 K/uL (130-430); RED BLOOD CELL COUNT(AUTO) 2.61 MIL/uL (4.2-6.2); RED CELL DISTRIBUTION WIDTH 15.7 % (9.0-15.0); WHITE BLOOD COUNT (AUTO) 5.2 K/uL (4.8-10.8)
[2022-03-07 12:43] LABS: ANION GAP 5 (5-15); CALCIUM 8.4 mg/dL (8.4-11.0); CHLORIDE 103 mmol/L (98-107); CREATININE 3.36 mg/dL (0.55-1.30); GLUCOSE 174 mg/dL (70-99); UREA NITROGEN, BLOOD 26 mg/dL (8-21)
[2022-03-07 12:46] LABS: INR 0.9 (0.80-1.20); PROTHROMBIN TIME 9.8 SECS (9.5-12.5)
[2022-03-07 12:50] LABS: ALANINE AMINOTRANSFERASE 28 U/L (12-78); ALBUMIN 3.2 g/dL (3.4-4.8); ASPARTATE AMINOTRANSFERASE 20 U/L (10-37); C-REACTIVE PROTEIN QUANT 0.3 mg/dL (0-0.5); GFR AFRICAN AMERICAN 24 mL/min (>90); TOTAL BILIRUBIN 0.7 mg/dL (0.0-1.0)
[2022-03-07 12:51] LABS: ACETAMINOPHEN < 1 ug/mL (1-30); ALCOHOL, BLOOD < 3 mg/dL (<10)
[2022-03-07 13:07] LABS: ACETONE, SERUM NEGATIVE (NEGATIVE)
--- NOTE | 2022-03-07 14:00 | NUR ---
DR. SLOAN AT BEDSIDE TO DISCUSS POC.
[2022-03-07 14:07] VITALS: BP_SYST 123
== END 2022-03-07 14:15 | disposition home or self-care (01) ==
LOC: SED 11:44
DX: E87.8 Other disorders of electrolyte and fluid balance, not elsewhere classified (principal); R41.82 Altered mental status, unspecified; I11.0 Hypertensive heart disease with heart failure; I50.9 Heart failure, unspecified; E11.9 Type 2 diabetes mellitus without complications; Z79.899 Other long term (current) drug therapy
CPT/HCPCS: 99285; 70450; 71045; 80053; 82009; 82140; 82962; 85025; 85610; 85730; 86140; 84484; 36415; 93005; 76376; 83605; G0482; G0480; G0481

== ENCOUNTER 2022-09-11 06:00 | Day surgery (SDC) | payer OTHER, MEDICAID ==
[~2022-09-11] VITALS: Ht 172.7 cm; Wt 86.9 kg
[2022-09-11] MEDS ORDERED: SIMETHICONE 40 MG/0.6 ML ML ONE (08:12)
[2022-09-11] MEDS: fentaNYL CITRATE/PF 100 MCG/2 ML AMP ONE ×2 (09:19→09:27)
[2022-09-11] MEDS: MIDAZOLAM HCL 5 MG/5 ML VIAL ONE ×2 (09:19→09:22)
[2022-09-11 14:25] VITALS: BP_SYST 139
== END 2022-09-11 11:20 | disposition home or self-care (01) ==
LOC: SDS 06:00 → SMU 06:00 → SDS 11:20
PROVIDERS: ATTEND Internal Medicine
DX: R19.4 Change in bowel habit (principal); D12.2 Benign neoplasm of ascending colon; R14.0 Abdominal distension (gaseous); K64.8 Other hemorrhoids; I12.0 Hypertensive chronic kidney disease with stage 5 chronic kidney disease or end stage renal disease; N18.6 End stage renal disease; Z99.2 Dependence on renal dialysis; Z79.899 Other long term (current) drug therapy
CPT/HCPCS: 45380; 45385; 82962; 88305; 99152; 99153; G0378; J2250; J3010

== ENCOUNTER 2023-03-30 13:07 | Emergency (ER) | payer OTHER, MEDICAID ==
[~2023-03-30] VITALS: Ht 172.7 cm; Wt 95.3 kg
[2023-03-30 13:07] VITALS: BP_SYST 135; PULSE 90; RESP 20; TEMP 97.7; O2SAT 96
[2023-03-30 13:59] LABS: BASOPHILS % (AUTO) 0.6 % (0.0-2.0); EOSINOPHILS # (AUTO) 0.1 K/uL (0.0-0.4); EOSINOPHILS % (AUTO) 2.2 % (0.0-4.0); HEMATOCRIT 30.2 % (36-54); HEMOGLOBIN 10.4 g/dL (14.0-18.0); LYMPHOCYTES # (AUTO) 1.4 K/uL (1.0-5.5); LYMPHOCYTES % (AUTO) 29.6 % (20.5-51.5); MEAN CORPUSCULAR HEMOGLOBIN 37 pg (27-31); MEAN CORPUSCULAR HGB CONC 35 % (32-36); MEAN CORPUSCULAR VOLUME 108 fL (79.0-98.0); MONOCYTES # (AUTO) 0.4 K/uL (0.0-1.0); MONOCYTES % (AUTO) 9.7 % (1.7-9.3); NEUTROPHILS # (AUTO) 2.6 K/uL (1.8-7.7); NEUTROPHILS % (AUTO) 57.9 % (40.0-70.0); PLATELET COUNT (AUTO) 113 K/uL (130-430); RED BLOOD CELL COUNT(AUTO) 2.81 MIL/uL (4.2-6.2); RED CELL DISTRIBUTION WIDTH 14.2 % (9.0-15.0); WHITE BLOOD COUNT (AUTO) 4.6 K/uL (4.8-10.8)
[2023-03-30 14:12] LABS: PROTHROMBIN TIME 10.2 SECS (9.5-12.5)
[2023-03-30 14:15] LABS: ALANINE AMINOTRANSFERASE 40 U/L (12-78); ALBUMIN 3.2 g/dL (3.4-4.8); ANION GAP 5 (5-15); ASPARTATE AMINOTRANSFERASE 22 U/L (10-37); CALCIUM 9.1 mg/dL (8.4-11.0); CARBON DIOXIDE 35 mmol/L (23-29); CHLORIDE 99 mmol/L (98-107); CREATININE 2.72 mg/dL (0.55-1.30); GFR AFRICAN AMERICAN 30 mL/min (>90); GFR NON AFRICAN-AMERICAN 25 mL/min (>90); GLUCOSE 105 mg/dL (74-106); POTASSIUM 3.1 mmol/L (3.5-5.1); SODIUM SERUM 139 mmol/L (136-145); TOTAL BILIRUBIN 0.6 mg/dL (0.0-1.0); TOTAL PROTEIN, SERUM 6.8 g/dL (6.4-8.3); UREA NITROGEN, BLOOD 28 mg/dL (8-21)
[2023-03-30 14:23] LABS: ALCOHOL, BLOOD < 3 mg/dL (<10)
[2023-03-30 15:44] LABS: BILIRUBIN,URINE NEGATIVE (NEGATIVE); CLARITY/URINE CLEAR (CLEAR); COLOR,URINE YELLOW (YELLOW); GLUCOSE,URINE NEGATIVE (NEGATIVE); KETONES,URINE NEGATIVE (NEGATIVE); LEUKOCYTE ESTERASE ,URINE 1+ (NEGATIVE); NITRITE, URINE NEGATIVE (NEGATIVE); PROTEIN URINE TRACE (NEGATIVE); UROBILINOGEN,URINE 0.2 (0.2-1.0)
[2023-03-30 16:08] LABS: BLOOD, URINE TRACE (NEGATIVE)
[2023-03-30 16:12] LABS: BACTERIA,URINE FEW /HPF (None Seen); MUCUS,URINE None Seen /LPF (None Seen); RBC,URINE 0-3 /HPF (0-3)
[2023-03-30 17:49] VITALS: BP_SYST 127; PULSE 78; RESP 18; TEMP 98.6; O2SAT 95
== END 2023-03-30 16:45 | disposition home or self-care (01) ==
LOC: SED 13:07
DX: E87.8 Other disorders of electrolyte and fluid balance, not elsewhere classified (principal); E11.649 Type 2 diabetes mellitus with hypoglycemia without coma; I12.0 Hypertensive chronic kidney disease with stage 5 chronic kidney disease or end stage renal disease; E11.22 Type 2 diabetes mellitus with diabetic chronic kidney disease; N18.6 End stage renal disease; R55 Syncope and collapse; R53.1 Weakness; Z79.899 Other long term (current) drug therapy
CPT/HCPCS: 99285; 70450; 71045; 80053; 82962; 85025; 85610; 85730; 87086; 84484; 36415; 93005; 76376; 81000; 81001; 81015; G0482

== ENCOUNTER 2024-01-12 06:00 | Day surgery (SDC) | payer OTHER, MEDICAID ==
[~2024-01-12] VITALS: Ht 172.7 cm; Wt 86.2 kg
[~2024-01-12 06:00] MED LIST changes: +HYDR100T13 PO; -HYDR100T25 PO
[2024-01-12 07:45] VITALS: O2SAT 99
[2024-01-12] MEDS ORDERED: MEPERIDINE 100 MG INJ. 100 MG/ML VIAL ONE (07:48)
[2024-01-12] MEDS ORDERED: SIMETHICONE 40 MG/0.6 ML ML ONE (07:48)
[2024-01-12] MEDS ORDERED: BENZOCAINE 20% 0.5mL UD SPRAY MM ONE (07:49)
[2024-01-12] MEDS ORDERED: MIDAZOLAM HCL 5 MG/5 ML VIAL ONE (07:49)
[2024-01-12 12:26] VITALS: BP_SYST 111; PULSE 60; RESP 17
== END 2024-01-12 10:16 | disposition home or self-care (01) ==
LOC: SMU 06:00 → SDS 06:00
PROVIDERS: ATTEND Internal Medicine
DX: R14.0 Abdominal distension (gaseous) (principal); K29.50 Unspecified chronic gastritis without bleeding; R10.13 Epigastric pain; I12.0 Hypertensive chronic kidney disease with stage 5 chronic kidney disease or end stage renal disease; E11.22 Type 2 diabetes mellitus with diabetic chronic kidney disease; N18.6 End stage renal disease; K21.9 Gastro-esophageal reflux disease without esophagitis; M79.7 Fibromyalgia; M19.90 Unspecified osteoarthritis, unspecified site; Z99.2 Dependence on renal dialysis; Z98.890 Other specified postprocedural states; Z79.899 Other long term (current) drug therapy
CPT/HCPCS: 43239; 99152; 82948; 88305; 88312; 88313; G0378; J2250; J2175